=== PATIENT | female | born 1950 | race Caucasian/White ===

== ENCOUNTER 2020-06-18 06:00 | Day surgery (SDC) | payer BC ==
[2020-06-14 14:14] VITALS: BP 140/73
[~2020-06-18] VITALS: Ht 156.2 cm; Wt 72.4 kg
[2020-06-18] VITALS (9 sets, daily range): BP systolic 142–166; BP diastolic 79–98
[2020-06-18] MEDS ORDERED: ISOVUE-M 200 20 ML VIAL IT ONE (07:14)
== END 2020-06-18 12:00 | disposition home or self-care (01) ==
LOC: DAH 06:00
PROVIDERS: ATTEND Neurological Surgery
DX: M41.86 Other forms of scoliosis, lumbar region (principal); M47.26 Other spondylosis with radiculopathy, lumbar region; Z98.1 Arthrodesis status; Z79.899 Other long term (current) drug therapy; Z20.828 Contact with and (suspected) exposure to other viral communicable diseases
CPT/HCPCS: 62304; 72132; 93005 ×2; A4215; A4221; A4222; A4223; A4663; A6260; C9803; Q9966; U0003